=== PATIENT | female | born 1985 | race Caucasian/White ===

== ENCOUNTER 2023-01-22 01:08 | Emergency (ER) | payer OTHER, SELFPAY ==
[~2023-01-22] VITALS: Ht 162.6 cm; Wt 72.7 kg
[2023-01-22 01:09] VITALS: BP 133/85; TEMP 97.3; O2SAT 99
[2023-01-22] MEDS ORDERED: PROZ20CA11 PO (01:34)
[2023-01-22] MEDS ORDERED: XANA2TAB2 PO (01:34)
[2023-01-22] MEDS ORDERED: SERO200T PO (01:34)
[2023-01-22] MEDS ORDERED: KLON2TAB PO (01:34)
[2023-01-22] MEDS ORDERED: KETOROLAC TROMETHAMINE 10 MG TAB PO ONE (04:30)
[2023-01-22] MEDS ORDERED: KETO10TAB PO (04:34)
[2023-01-22] MEDS ORDERED: IBUP-1022 PO (05:09)
[2023-01-22] MEDS ORDERED: IBUPROFEN 600MG TAB PO ONE (05:10)
== END 2023-01-22 05:22 | disposition home or self-care (01) ==
LOC: M ED 01:08
DX: S69.91XA Unspecified injury of right wrist, hand and finger(s), initial encounter (principal); X58.XXXA Exposure to other specified factors, initial encounter; Y92.009 Unspecified place in unspecified non-institutional (private) residence as the place of occurrence of the external cause; F17.200 Nicotine dependence, unspecified, uncomplicated; Z88.5 Allergy status to narcotic agent; Z88.8 Allergy status to other drugs, medicaments and biological substances